=== PATIENT | female | born 1980 | race Caucasian/White ===

== ENCOUNTER 2017-05-18 08:31 | Outpatient (CLI) | payer OTHER ==
--- NOTE | 2017-05-18 08:58 | RAD ---
LEFT FINGER 3 VIEWS: HISTORY: Pain in the left thumb. FINDINGS/IMPRESSION: No fracture, dislocation, or bony destruction is identified. POS: H
== END 2017-05-18 08:32 | disposition home or self-care (01) ==
LOC: SCSRAD 08:31
PROVIDERS: ATTEND Family Medicine
DX: M79.645 Pain in left finger(s) (principal)

== ENCOUNTER 2017-08-10 08:41 | Outpatient (CLI) | payer OTHER ==
--- NOTE | 2017-08-10 10:03 | RAD ---
THREE VIEWS LUMBOSACRAL SPINE: Comparison: None. History: Bilateral leg parastasis and low back pain. FINDINGS: Three views of the lumbosacral spine shows normal height and alignment of the vertebral bodies and in tervertebral discs without fracture or subluxation. No degenerative changes are seen. Sacroiliac join ts are unremarkable. IMPRESSION: Unremarkable exam. POS: MARCELA
--- NOTE | 2017-08-10 10:04 | RAD ---
FIVE VIEWS CERVICAL SPINE: Comparison: None. History: Paresthesia of both hands. FINDINGS: Five views of the cervical spine shows normal height and alignment of the vertebral bodies and interv ertebral discs without fracture or subluxation. No degenerative changes are seen. No bony narrowing o f the neural foramina is seen on the oblique images. IMPRESSION: Unremarkable exam. POS: TRINIDAD
== END 2017-08-10 08:42 | disposition home or self-care (01) ==
LOC: SCSRAD 08:41
PROVIDERS: ATTEND Family Medicine
DX: R20.2 Paresthesia of skin (principal)
CPT/HCPCS: 72050; 72100

== ENCOUNTER 2017-09-05 07:31 | Outpatient (CLI) | payer OTHER ==
[2017-09-05] MEDS ORDERED: Gadobenate Dimeglumine 529 MG/1 ML (20ML VIAL) ONE (10:37)
== END 2017-09-05 07:32 | disposition home or self-care (01) ==
LOC: BICMRI 07:31
PROVIDERS: ATTEND Psychiatry & Neurology Neurology
DX: G95.9 Disease of spinal cord, unspecified (principal); M50.322 Other cervical disc degeneration at C5-C6 level; M50.323 Other cervical disc degeneration at C6-C7 level
CPT/HCPCS: 70553; 72156; A9579

== ENCOUNTER 2018-11-01 12:14 | Outpatient (CLI) | payer OTHER ==
--- NOTE | 2018-11-01 13:43 | MRI ---
MRI Cervical spine without contrast: HISTORY: Paresthesias bilateral hands. Findings of numbness and tingling in the bilateral hands and feet for one and a half years. Frequent falls. COMPARISON: [facility] a diagnostic imaging Center on 09/05/2017 FINDINGS: The craniocervical junction is unremarkable. No significant cord signal abnormality. Paravertebral soft tissues have a normal appearance and normal signal intensity. Foci of increased T1 and T2-weighted signal intensity are seen in the C7 and T1 vertebral bodies stab le from prior exam and likely represent small hemangiomas. No other bone marrow signal abnormalities are seen. C1-2:No significant stenosis. C2-3: There is no disc bulge or disc herniation. The central spinal canal and neural foramina are pat ent. C3-4: There is no disc bulge or disc herniation. The central spinal canal and neural foramina are pat ent. C4-5: There is no disc bulge or disc herniation. The central spinal canal and neural foramina are pat ent. C5-6: Mild loss of intervertebral disc height. There is a mild broad-based disc osteophyte complex wh ich effaces the ventral subarachnoid space with slight flattening of the anterior aspect of the spinal cord. Neural foramina are patent. C6-7: Again, there is loss of intervertebral disc height with a mild disc osteophyte complex. This re sults in generalized narrowing of the central spinal canal with slight flattening of the anterior aspect of the spinal cord. There is normal signal intensity in the spinal cord at this level. There i s minimal bilateral neural foraminal narrowing. Mild facet degenerative changes are seen. C7-T1: There is no disc bulge or disc herniation. The central spinal canal and neural foramina are pa tent. IMPRESSION: Stable mild disc degenerative changes at the C5-6 and C6-7 levels.
--- NOTE | 2018-11-01 16:07 | MRI ---
BRAIN MRI WITH AND WITHOUT CONTRAST: Date: 11/01/18 COMPARISON: 09/05/17. HISTORY: Numbness and tingling of bilateral hands and feet. TECHNIQUE: Multiplanar, multisequence MR imaging of the brain is provided with and without contrast. FINDINGS: The diffusion-weighted imaging demonstrates no evidence for acute infarction. The axial gradient echo imaging demonstrates no evidence for intracranial hemorrhage. There is no midline shift or mass effect. No ventricular enlargement is noted. Arterial flow-voids at the axial level of the skull base appear grossly unremarkable on the T2-weight ed imaging. Regional bone marrow signal intensity appears within normal limits. No significant white matter disea se noted. Postcontrast imaging demonstrates no abnormal enhancement within the brain parenchyma. IMPRESSION: Unremarkable contrast enhanced brain MRI. POS: MARCELA
== END 2018-11-01 12:15 | disposition home or self-care (01) ==
LOC: SCSMRI 12:14
PROVIDERS: ATTEND Psychiatry & Neurology Neurology
DX: G43.501 Persistent migraine aura without cerebral infarction, not intractable, with status migrainosus (principal); G43.009 Migraine without aura, not intractable, without status migrainosus; R20.2 Paresthesia of skin; M50.322 Other cervical disc degeneration at C5-C6 level
CPT/HCPCS: 70553; 72141

== ENCOUNTER 2023-02-21 08:32 | Outpatient (CLI) | payer OTHER | END 2023-02-21 08:33 | disposition home or self-care (01) | LOC: SCSRAD 08:32 | PROVIDERS: ATTEND Family Medicine | DX: M79.641 Pain in right hand (principal) ==